=== PATIENT | female | born 1970 | race Caucasian/White ===

== ENCOUNTER → 2021-09-10 | Outpatient (CLI) | payer BC ==
[2021-09-10 14:06] VITALS: BP 121/76; PULSE 91; RESP 16; TEMP 99.4
--- NOTE | 2021-09-10 14:33 | P.GSHP ---
History of Present Illness H&P Date: 09/10/21 Chief Complaint: invasive lobular carcinoma left breast Ness is a 50 year old white female who is seen in consultation for Dr. Mccollum regarding a left breast invasive obturator carcinoma. The patient states she felt a lump in February. She had a bilateral mammogram in March and was told to have a repeat left breast mammogram in 6 months. This was repeated on 08-13-21 and a hyperdensity area of architectural distortion with spiculated margins was noted in the left axilla. An ultrasound was recommended an ultrasound was performed showing an irregular mass in the left axilla and ultrasound-guided core biopsy was performed on . Pathology revealed invasive lobular carcinoma ER/VA positive HER-2/lorenzo negative. She does not note any other lumps masses or nodules of concern in either breast. The area has not changed since she first found it. It was not tender prior to her biopsy. She tolerated the biopsy without difficulty. She has never had any breast surgery. She is not complaining of any trauma or infection in the breast. She does not complain of any nipple discharge or skin changes. Caffeine: daily 3 cups coffee/ 3-4 cans of coca-cola nicotine: 1PPD/since chocolate: none BCP: stopped at 30; used them for 12 years hormones: none Family History: maternal grandmother: lung cancer paternal grandfather: colon cancer paternal grandmother: cancer ? type Hormonal History: menarche: 14 A1, age at first : 32; breast fed: no menopause: still having her periods; periods regular hormones: none BCP: stopped at 30 used for 12 years Surgical History: wisdom teeth Medical History: anxiety and depression Social history: Nicotine: One pack per day since Alcohol: occasional; an actively drinking alcoholic, patient rarely drinks but did have something to drink after she found the diagnosis Drugs:none - Constitutional Comment: perimenopausal Constitutional: Reports sweats - EENT Eyes: denies blurred vision, denies pain Ears: deny: decreased hearing, tinnitus Ears, nose, mouth and throat: Denies headache, Denies sore throat - Breasts Breasts: bilateral: as per HPI - Cardiovascular Cardiovascular: Denies chest pain, Denies shortness of breath - Respiratory Respiratory: Denies cough, Denies 7 - Gastrointestinal Gastrointestinal: Denies abdominal pain, Denies diarrhea, Denies nausea, Denies vomiting - Genitourinary (Female) Genitourinary: Denies dysuria, Denies hematuria - Menstruation Menstruation: Reports as per HPI, Reports period normal - Musculoskeletal Musculoskeletal: Denies myalgias - Integumentary Integumentary: Reports pruritus, Denies rash - Neurological Neurological: Denies numbness, Denies weakness - Psychiatric Psychiatric: Reports anxiety, Reports depression - Endocrine Endocrine: Reports fatigue - Hematologic/Lymphatic Comment: none - Allergic/Immunologic Allergic/Immunologic: Reports as per HPI Past Medical History History of Any Multi-Drug Resistant Organisms: None Reported Smoking Status: Current every day smoker Medications and Allergies Home Medications Medication Instructions Recorded Confirmed Type Ascorbic Acid/Multivit-Min 1,000 mg PO DAILY 09/10/21 09/10/21 History [Emergen-C 1,000 mg Packet] Escitalopram [Lexapro] 10 mg PO DAILY 09/10/21 09/10/21 History Allergies Allergy/AdvReac Type Severity Reaction Status Date / Time Sulfa (Sulfonamide Allergy Rash/Hives Unverified 09/10/21 14:03 Antibiotics) Surgical - Exam Vital Signs Temp Pulse Resp BP Pulse Ox 99.4 F 91 16 121/76 100 09/10/21 14:04 09/10/21 14:04 09/10/21 14:04 09/10/21 14:04 09/10/21 14:04 BMI 22.1 - General moderate distress - Eyes normal ocular movement - ENT no hearing loss - Neck trachea midline - Respiratory normal respiratory effort, clear to auscultation - Cardiovascular Rhythm: regular Heart Sounds: normal: S1, S2 - Abdomen Abdomen: soft, non tender, no guarding, no rigid, no rebound - Integumentary normal turgor - Neurologic no disoriented, no combative - Musculoskeletal normal gait, normal posture - Psychiatric oriented to time, oriented to person, oriented to place, speech is normal, memory intact Breast Exam: BRA: 34B inspection: Bilateral grade 1/2 ptosis Palpation: Right breast: Multi-positional exam fibrocystic changes no discrete dominant masses or nodules of concern Right axilla: No adenopathy of concern Left breast increased fullness upper-outer quadrant approximately 1-1.5 cm in size consistent with biopsy-proven invasive lobular carcinoma no other dominant masses or nodules of concern Left axilla: No adenopathy of concern Results Left breast mammogram and ultrasound reviewed with Dr. Sherman Assessment and Plan Assessment: Impression: 1. Left breast invasive lobular carcinoma T1 N0 M0 G1 ER/VA positive HER-2/lorenzo negative/stage IA Plan: 1. Bilateral breast MRI 2. Presentation of case at tumor board 3. Patient to follow up after MRI and tumor board 4. Consider genetic testing Cc: Dr. Mccollum
== END ==
LOC: WWCWWP 13:44
PROVIDERS: ATTEND Surgery
DX: C50.912 Malignant neoplasm of unspecified site of left female breast (principal); F17.210 Nicotine dependence, cigarettes, uncomplicated; F41.9 Anxiety disorder, unspecified; F32.A Depression, unspecified; Z88.2 Allergy status to sulfonamides

== ENCOUNTER → 2021-09-22 | Outpatient (CLI) | payer BC ==
--- NOTE | 2021-09-28 11:37 | BMR ---
MRI BREAST BILATERAL WO/W CONTRAST 09/24/2021. CLINICAL HISTORY: Left breast cancer. Family history includes: No family history of breast cancer. Me narche at age 14. The patient has had 1 child at age 32. She did not report testing for the breast ca ncer gene. TECHNIQUE: PULSE SEQUENCES: Multiplanar, multisequence MR images of the breast were obtained on a 3.0 [facility], [place] [employer] X MRI imaging scanner. Precontrast axial T1, T2, and diffusion/ADC. Multi phase dynamic post-contrast, fat saturated axial sequences through both breasts at 5 separate time po ints. Delayed volumetric axial images through the breast were also obtained with coronal and sagittal reformats. Dynamic images were spatially registered using the [employer] [place] software package, and dynamic c urves and parametric images were evaluated. Post-processed subtraction and MIP reconstructions were a lso generated and evaluated. As part of the dynamic portion of this examination, 6 mL of Gadavist was administered intravenously a t a rate of 2 mL/sec, without complication. Field of view for the dynamic portion of this study was 34 cm. COMPARISON: Mammograms and ultrasounds dated 09/01/2021. Breast ultrasound dated 08/13/2021. Mammograms dated 021. FINDINGS: The technical quality of this study is considered adequate to make a final assessment and recommendat ion. There is heterogeneous fibroglandular tissue bilaterally and marked background enhancement. Coronal T2 sequences demonstrates normal bilateral axillary nodes. Axial T2 sequence demonstrates multiple bilateral scattered simple cysts, the largest in left upper o uter breast middle depth measuring 6 mm. No fluid collections. Non fat saturated T1 sequence demonstrates no fat containing lesions. Signal void in the left upper o uter breast corresponds to mammographic marker clip. High resolution post contrast sequence demonstrates no internal mammary lymphadenopathy. Regarding the right breast: Marked background parenchymal enhancement limits evaluation for subtle fi ndings. There are no masses, architectural distortion or suspicious areas of enhancement. Regarding the left breast: Marked background parenchymal enhancement limits evaluation for subtle fin dings. At the 2 o'clock position, 7 cm from the nipple, there is an irregular mass with irregular mar gins measuring 2.1 x 1.5 x 2.0 cm. Internal enhancement is heterogeneous. Kinetic assessment demonstr ates fast initial phase enhancement with washout on the delayed portions of the curve. It is best see n on dynamic images 143 through 150. There is surrounding non-mass enhancement with regional distribution which is contiguous with the mas s extending into left lower outer quadrant to the 4 o'clock position measuring 5 cm in extent. Kineti c assessment is limited by patient motion. A community representative area of this non-mass enhancement is seen on dynamic image 105. IMPRESSION: Marked background parenchymal enhancement limits evaluation for subtle findings. Known left breast malignancy is seen as an irregular mass at the 2 o'clock position measuring 2.1 cm in extent as described in the body of the report. Surrounding regional non-mass enhancement measuring 5 cm in extent is contiguous with the known malignancy and is suspicious. No lymphadenopathy. No evidence of malignancy in the right breast. Multiple bilateral scattered simple cysts, benign. Recommendations: Appropriate management known left breast malignancy at the 2 o'clock position. If br east conservation is planned, consider MR-guided biopsy of surrounding regional non-mass enhancement extending to the 4 o'clock position to confirm extent of disease. BI-RADS category 2, benign right breast. BI-RADS category 4, suspicious left breast. CONCURRENT SUPERVISION: I have reviewed the images and agree with the fellow's interpretation. Preliminary created by: Misty Almaraz Signed by: Rosie Delgadillo 09/24/2021 11:45:07 Rosie Delgadillo piano stringer Senior Accountant Cpa, Breast Imaging Section Special Events Planner Student Education in Radiology
== END | disposition home or self-care (01) ==
LOC: RADMRIMAIN 18:54
PROVIDERS: ATTEND Surgery
DX: C50.412 Malignant neoplasm of upper-outer quadrant of left female breast (principal)
CPT/HCPCS: 77049; C8937; A9585

== ENCOUNTER → 2021-12-17 | Outpatient (CLI) | payer BC ==
[2021-12-17 15:22] VITALS: BP 155/84; PULSE 87; RESP 18; TEMP 98.5
--- NOTE | 2021-12-17 15:27 | P.PN ---
Subjective Progress Note Date: 12/17/21 Principal diagnosis: left breast invasive lobular carcinoma invasive lobular carcinoma left breast Ness is a 50 year old white female who is seen in consultation for Dr. Mccollum regarding a left breast invasive lobular carcinoma. The patient states she felt a lump in February. She had a bilateral mammogram in March and was told to have a repeat left breast mammogram in 6 months. This was repeated on 08-13-21 and a hyperdensity area of architectural distortion with spiculated margins was noted in the left axilla. An ultrasound was recommended an ultrasound was performed showing an irregular mass in the left axilla and ultrasound-guided core biopsy was performed on . Pathology revealed invasive lobular carcinoma ER/TX positive HER-2/lorenzo negative. She does not note any other lumps masses or nodules of concern in either breast. The area has not changed since she first found it. It was not tender prior to her biopsy. She tolerated the biopsy without difficulty. She has never had any breast surgery. She is not complaining of any trauma or infection in the breast. She does not complain of any nipple discharge or skin changes. 12-17-21 The patient underwent a bilateral breast MRI on . This revealed marked background parenchymal enhancement. Known left breast malignancy was seen as an irregular mass at the 2 o'clock position measuring 2.1 cm. Surrounding the region was a non-mass enhancing area which measured 5 cm and was contiguous with the known malignancy and felt to be suspicious. No lymphadenopathy of concern was noted No evidence of malignancy in the right breast Multiple bilateral scattered simple cyst benign The patient was seen by Dr. Ch for immediate breast reconstruction consideration The patient underwent genetic testing and had a very Service significance The patient's case was presented at tumor board and it was felt that the patient could proceed with surgery prior to any neoadjuvant intervention Caffeine: daily 3 cups coffee/ 3-4 cans of coca-cola nicotine: 1PPD/since 14 chocolate: none BCP: stopped at 30; used them for 12 years hormones: none Family History: maternal grandmother: lung cancer paternal grandfather: colon cancer paternal grandmother: cancer ? type Hormonal History: menarche: 14 A1, age at first : 32; breast fed: no menopause: still having her periods; periods regular hormones: none BCP: stopped at 30 used for 12 years Surgical History: wisdom teeth Medical History: anxiety and depression Social history: Nicotine: One pack per day since 14 Alcohol: occasional; an actively drinking alcoholic, patient rarely dr inks but did have something to drink after she found the diagnosis Drugs:none - Constitutional Comment: perimenopausal Constitutional: Reports sweats - EENT Eyes: denies blurred vision, denies pain Ears: deny: decreased hearing, tinnitus Ears, nose, mouth and throat: Denies headache, Denies sore throat - Breasts Breasts: bilateral: as per HPI - Cardiovascular Cardiovascular: Denies chest pain, Denies shortness of breath - Respiratory Respiratory: Denies cough - Gastrointestinal Gastrointestinal: Denies abdominal pain, Denies diarrhea, Denies nausea, Denies vomiting - Genitourinary (Female) Genitourinary: Denies dysuria, Denies hematuria - Menstruation Menstruation: Reports as per HPI, Reports period normal - Musculoskeletal Musculoskeletal: Denies myalgias - Integumentary Integumentary: Reports pruritus, Denies rash - Neurological Neurological: Denies numbness, Denies weakness - Psychiatric Psychiatric: Reports anxiety, Reports depression - Endocrine Endocrine: Reports fatigue - Hematologic/Lymphatic Comment: none - Allergic/Immunologic Allergic/Immunologic: Reports as per HPI Past Medical History History of Any Multi-Drug Resistant Organisms: None Reported Smoking Status: Current every day smoker Objective - Constitutional General appearance: Present: cooperative - EENT Eyes: Present: EOMI ENT: Present: hearing grossly normal - Neck Neck: Present: normal ROM - Respiratory Respiratory: bilateral: CTA - Cardiovascular Rhythm: regular Heart sounds: normal: S1, S2 - Gastrointestinal General gastrointestinal: Present: soft - Integumentary Integumentary: Present: normal turgor - Musculoskeletal Musculoskeletal: Present: gait normal - Psychiatric Psychiatric: Present: A&O x's 3, appropriate affect, intact judgment & insight - Additional findings Additional findings: Breast examination: Bra: 34B Inspection: bilateral grade 1/2 ptosis palpation: right breast: Multi-positional exam fibrocystic changes no dominant masses or nodules of concern Right axilla: No adenopathy of concern Left breast: Multi-positional exam fullness upper-outer quadrant area no dominant masses or nodules of concern Left axilla: No adenopathy of concern Assessment and Plan Assessment: Impression: Invasive lobular carcinoma left breast Genetic evaluation. Of unknown significance MRI bilateral of the breast questionable size of involvement on the left side possibly up to 5 cm Plan: Bilateral nipple sparing mastectomies with immediate subpectoral implant reconstruction left axillary sentinel node injection, left axillary sentinel node biopsy, poss ible left axillary node dissection CC: Dr. Mccollum
== END ==
LOC: WWCWWP 15:01
PROVIDERS: ATTEND Surgery
DX: C50.412 Malignant neoplasm of upper-outer quadrant of left female breast (principal); F17.210 Nicotine dependence, cigarettes, uncomplicated; F32.A Depression, unspecified; F41.9 Anxiety disorder, unspecified; Z88.2 Allergy status to sulfonamides

== ENCOUNTER 2021-12-28 07:45 | Day surgery (SDC) | payer BC ==
[2021-12-27 09:23] VITALS: BMI 21.8
[~2021-12-28 07:45] MED LIST: DEXAMETHASONE SOD PHOSPHATE 4 MG/ML 1 ML VIAL IV ONE; HEPARIN SODIUM,PORCINE/PF 5,000 UNIT/0.5 ML SYRINGE SQ PRN; LIDOCAINE 1% (10MG/ML) FOR IV START INTRADERMA PRN; MIDAZOLAM 2 MG/2 ML VIAL IV PRN; ONDANSETRON 4 MG/2 ML VIAL IVP ONE; Pre Op ABX Message 1 EACH MISC MISCELLANE ONE
[2021-12-28] MEDS: LACTATED RINGERS 1,000 ML IV SCH (08:13)
[2021-12-28 08:57] LABS: Basophils % (A) 1 %; Eosinophils # (A) 0.2 k/uL (0-0.7); Eosinophils % (A) 4 %; HCT 36.9 % (34.0-46.0); HGB 11.9 gm/dL (11.4-16.0); Lymphocytes # (A) 1.7 k/uL (1.0-4.8); Lymphocytes % (A) 34 %; MCH 32.7 pg (25.0-35.0); MCHC 32.3 g/dL (31.0-37.0); MCV 101.3 fL (80.0-100.0); Mean Platelet Volume 7.3; Monocytes # (A) 0.3 k/uL (0-1.0); Monocytes % (A) 5 %; Neutrophils # (A) 2.7 k/uL (1.3-7.7); Neutrophils % (A) 53 %; Platelet Count 277 k/uL (150-450); RBC 3.64 m/uL (3.80-5.40); RDW 12.8 % (11.5-15.5); WBC 5.1 k/uL (3.8-10.6)
--- NOTE | 2021-12-28 09:23 | NM ---
EXAMINATION TYPE: NM sentinel node injection DATE OF EXAM: 12/28/2021 COMPARISON: None HISTORY: 51-year-old female with left breast cancer, scheduled for surgery today TECHNIQUE AND FINDINGS: The procedure of sentinel lymph node injection was explained to the patient. The benefits, alternatives, and risks were discussed. An informed consent was then obtained. Overlying skin is cleaned with sterile alcohol. Following this, 502 uCi [id number] Tilmanocept was inject ed in the upper outer aspect of the left nipple intradermally. The patient tolerated the procedure well without any immediate complication. The patient was kept in the radiology department for short stay after the procedure and then taken to surgery for surgical p rocedure what is presumed intraoperative gamma probe will be used for sentinel lymph node detection. IMPRESSION: Successful left breast radiotracer injection for sentinel node localization as above.
[2021-12-28] MEDS ORDERED: ceFAZolin 1,000 MG VIAL ONE (09:45)
[2021-12-28] MEDS ORDERED: fentaNYL (PF) 50 MCG/ML 2 ML AMP ONE (09:45)
[2021-12-28] MEDS ORDERED: SUCCINYLCHOLINE CHLORIDE 100 MG/5 ML SYR IV ONE (09:45)
[2021-12-28] MEDS ORDERED: ePHEDrine 50 MG/ML 1 ML VIAL ONE (09:45)
[2021-12-28] MEDS ORDERED: LIDOCAINE 2% INJ 20 MG/ML (2 ML VIAL) ONE (09:45)
[2021-12-28] MEDS ORDERED: PROPOFOL 10 MG/ML 20 ML VIAL IV ONE (09:45)
[2021-12-28] MEDS ORDERED: MIDAZOLAM 2 MG/2 ML VIAL ONE (09:45)
--- NOTE | 2021-12-28 09:47 | P.NAPBC ---
[facility] Queries - [facility] Queries Was patient's case review presented at [facility] tumor board? If no, comment.: Yes Was patient's pathology reviewed at [facility]? If no, comment.: Yes Was breast conservation surgery offered? If no, comment.: Yes Was sentinel node biopsy offered? If no, comment.: Yes Was diagnosis confirmed by percutaneous core biopsy? If no, comment.: Yes Is patient mastectomy patient?: Yes Was a preop referral to reconstructive surgeon offered?: Yes [facility] Comments: invasive lobular left breast cancer Clinical Stage: [id number]+Pr+Her2-G1 left breast invasive lobular cancer
[2021-12-28] MEDS ORDERED: SODIUM CHLORIDE 0.9% 50 ML with ceFAZolin 1,000 MG IV ONE ×2 (09:48)
[2021-12-28] MEDS ORDERED: NALOXONE 0.4 MG/ML 1 ML VIAL IV PRN (12:03)
[2021-12-28] MEDS ORDERED: ONDANSETRON 4 MG/2 ML VIAL IVP PRN (12:03)
[2021-12-28] MEDS ORDERED: HYDROmorphone 1 MG/ML 1 ML SYRINGE IVP PRN (12:03)
--- NOTE | 2021-12-28 12:03 | P.OP ---
Date of Procedure: 12/28/21 Preoperative Diagnosis: Left breast invasive ductal carcinoma, T2 N0 M0 ER positive ME positive HER- 2/lorenzo negative G1 Postoperative Diagnosis: Same Procedure(s) Performed: Bilateral nipple sparing mastectomy, left axillary sentinel node biopsy Implants: Bilateral subpectoral implant placement Anesthesia: ANA Surgeon: Shelley Hensley Carbonation Tester #2: Sam Jones Estimated Blood Loss (ml): 30 IV fluids (ml): 400 Pathology: other (Bilateral breast, tissue under the left nipple complex, left sentinel node biopsy) Condition: stable Disposition: same day (Bilateral breast, left sentinel node biopsy) Indications for Procedure: Left breast invasive lobular carcinoma Operative Findings: Dense breast tissue Description of Procedure: Following the patient didn't seem to radiology and injection of radioactive substance around the left periareolar region the patient was seen and marked in the preoperative area. She was seen by plastic surgery and marked as well as the markings where the incisions were made for nipple sparing mastectomies. The patient was brought to the operative suite and following induction of anesthesia the left axilla was interrogated using the neoprobe. Radioactivity was identified. The breast were then prepped and draped as well as the left axilla in a sterile fashion. The right breast was approached initially. An incision was made circumferential dissection was performed. The breast was from the skin envelope laterally inferiorly and superiorly down to the chest wall. Under the nipple areolar complex careful dissection was performed under the nipple complex. The breast was taken down from the chest wall using the electrocautery device. Several vessels were identified these were cauterized. After this had been performed the cavity was well irrigated. After assured that hemostasis was attained the wound was packed. The left side was then approached. An incision was made and carried down through the skin and subcutaneous tissue to the plane between the breast and the subcutaneous tissue. Careful dissection was performed using the electrocautery device as well as blunt diss ection superiorly medially inferiorly and laterally down to the chest wall. The breast tissue was removed from the skin envelope. Dissection was then performed from the chest wall removing the breast tissue. Under the nipple areolar complex of biopsy was taken to assure that all breast tissue had been removed. The area of the axilla was approached. Using the neoprobe interrogation was performed and the area of radioactivity was identified. At this site a lymph node was identified. The 10 second count after removal was 14,686. The background count in the axilla was 70. After assured that hemostasis was attained the area was well irrigated. The tissue directly under the nipple was biopsied and sent for frozen section. The patient is having subpectoral implant reconstruction by Dr. Ch.
[2021-12-28] MEDS ORDERED: LACTATED RINGERS 1,000 ML IV ONE (13:31)
[2021-12-28] MEDS: HYDROmorphone 0.5 MG/0.5 ML SYRINGE IVP PRN ×2 (14:14→14:29)
--- NOTE | 2021-12-28 15:25 | OP ---
OPERATIVE REPORT DATE OF SURGERY: December 28, 2021. SURGEON: Sam Jones. PREOPERATIVE DIAGNOSES: 1. Acquired loss right and left breast. 2. Invasive lobular breast cancer, left breast. POSTOPERATIVE DIAGNOSES: 1. Acquired absence of right and left breast. 2. Invasive lobular breast cancer, left breast. OPERATIVE PROCEDURES: 1. Immediate reconstruction right breast following mastectomy with insertion of tissue general laborer and subsequent outpatient expansion. 2. Immediate reconstruction left breast following mastectomy with insertion of tissue general laborer, subsequent outpatient expansion. 3. Implantation of reconstructive graft for right and left breast reconstruction. OPERATIVE INDICATIONS: The patient is a 51-year-old female with invasive lobular cancer of left breast. She has elected to undergo nipple sparing mastectomies, bilateral. She is also to undergo a left sentinel lymph node biopsy. The patient was referred to my care for a breast reconstruction and elected to proceed with tissue general laborer style reconstruction. She is aware of potential risks and complications related to the surgery including but not limited to hematoma, seroma, wound healing problems, potential nipple loss, nipple malposition, among others. She has requested I perform the surgery. The patient is also aware of the staged nature of breast reconstructive surgery. OPERATIVE PROCEDURE SUMMARY: The patient is seen in the preoperative area, markings made, procedure reviewed. All questions answered. She is transported to the operating room where she was placed in supine position. Following induction of general tracheal anesthesia, the patient is prepped and draped in usual fashion. Dr. Hensley then proceeded with the right simple mastectomy followed by left mastectomy with left sentinel lymph node biopsy. Once those procedures were complete, I proceeded with the breast reconstruction. Sponge and needle counts of prior procedures were complete. Both mastectomy wounds were open with no active bleeding. Reconstruction was initiated on the right side identifying the pectoralis major muscle where it joined the chest wall laterally. Loose areolar connective tissue divided with cautery here allowing entry into the potential plane between the pectoralis major and minor muscles which were bluntly . The medial attachment fibers of the pectoralis major muscle to ribs and all inferior attachments released with cautery. Additional muscle tissue was recruited for coverage of the general laborer and reconstruction. Inferior medially the rectus abdominis muscle and fascia inferolaterally, external abdominal oblique muscle and fascia and laterally serratus anterior muscle fascia were all elevated cautery through this technique maintaining hemostasis with cautery while dissecting. Irrigation was performed. Hemostasis was optimal. The site was packed open with moistened laparotomy sponges. Attention turned to left reconstruction. Again, the pectoralis major muscle was identified where it joined the chest wall lateral aspect. Loose areolar connective tissue divided with cautery here. This allowed entry into the potential plane between the pectoralis major and minor muscles bluntly developed. Medial attachment fibers of the pectoralis major muscle to ribs and all inferior attachment of the pectorals major muscle to ribs were released with cautery. Additional muscle tissue was required for a reconstructive coverage inferior medially, rectus abdominis muscle and fascia, inferolaterally external abdominal oblique muscle and fascia and laterally serratus anterior muscle and fascia were all elevated through this technique with cautery maintaining hemostasis while dissecting. Once a sufficient sized submuscular reconstructive pocket was created in a symmetrical fashion to the right, surgery was stopped. Both sides were irrigated. Hemostasis optimized and excellent on both sides. The cavities were sized and tissue expanders were opened on the field. Gloves were changed prior to handling the tissue expanders. Both expanders measured 400 mL in volume from the [employer] tissue general laborer line, reference #[id number]. The right- sided serial #[id number] and the left-sided serial #[id number]. Each device was opened, irrigated with saline. All air extracted and filled 50 mL 0.9 normal saline. The devices were temporary placed in each reconstructive cavity. However muscle tissue could not be closed over either device in a suitable fashion. The devices were temporarily removed. SurgiMend reconstructive graft opened on the field. Two sheets measuring 10 x 15 cm meshed and thin revitalized room temperature saline, one sheet was placed on the left and one on the right. They were placed, oriented inferior modified slim technique, secured to the inferior muscle cuff and lateral muscle cuff using interrupted and short running 3-0 Vicryl on each side. The expanders were replaced on each side and then the SurgiMend advanced over the general laborer deep to the remaining muscle flap tissue and inset to the remaining muscle flap tissue using interrupted and short running 3-0 Vicryl on each side. Complete coverage now obtained. Each general laborer was filled to a volume of 200 mL which placed optimal tension on the tissues. Irrigation was performed. Hemostasis was excellent. Two nineteen round Romulo channel drains opened on the field. One drain placed in each reconstructive cavity and brought out thru separate stab incisions right and left anterior lateral chest wall and sutured in place with 2-0 Prolene. The incisions were now closed approximating deep dermis using inverted interrupted 4-0 Monocryl and completing superficial dermal epidermal closure with subcuticular 3-0 Prolene. Surgical quick cleansed with saline. Postoperative bandages placed using sterile one-inch paper tape over suture repairs followed by Kerlix squares secured with 3 Medipore tape. The drains connected to close bulb suction and patent. The patient was then awakened from her anesthetic, extubated in the operating room and transferred to recovery room in good condition stable vital signs. Estimated blood loss was 50 mL. There were no complications. MMODL / IJN: [id number] /
[2021-12-28] MEDS: HEPARIN SODIUM,PORCINE/PF 5,000 UNIT/0.5 ML SYRINGE SQ SCH (16:33)
[2021-12-28] MEDS: SODIUM CHLORIDE 0.9% 1,000 ML IV SCH (16:42)
[2021-12-28 17:41] VITALS: RESP 16
[2021-12-28] MEDS: ACETAMINOPHEN IV (For NPO) 1,000 MG in EMPTY BAG 1 BAG IVPB SCH (18:26)
[2021-12-29] MEDS: ACETAMINOPHEN IV (For NPO) 1,000 MG in EMPTY BAG 1 BAG IVPB SCH ×3 (00:02→13:05)
[2021-12-29] MEDS: HEPARIN SODIUM,PORCINE/PF 5,000 UNIT/0.5 ML SYRINGE SQ SCH ×2 (00:02→08:16)
[2021-12-29] MEDS: SODIUM CHLORIDE 0.9% 1,000 ML IV SCH ×2 (01:14→08:37)
[2021-12-29] MEDS: HYDROcodone/APAP 5-325MG 1 EACH TAB PO PRN ×2 (05:55→09:48)
[2021-12-29 07:00] LABS: Basophils % (A) 0 %; Eosinophils % (A) 0 %; HCT 32.6 % (34.0-46.0); HGB 10.4 gm/dL (11.4-16.0); Lymphocytes # (A) 1.6 k/uL (1.0-4.8); Lymphocytes % (A) 24 %; MCH 33.1 pg (25.0-35.0); MCHC 31.9 g/dL (31.0-37.0); MCV 103.8 fL (80.0-100.0); Macrocytosis Slight; Mean Platelet Volume 7.7; Monocytes # (A) 0.5 k/uL (0-1.0); Monocytes % (A) 7 %; Neutrophils # (A) 4.6 k/uL (1.3-7.7); Neutrophils % (A) 67 %; Platelet Count 224 k/uL (150-450); RBC 3.14 m/uL (3.80-5.40); RDW 12.2 % (11.5-15.5); WBC 6.9 k/uL (3.8-10.6)
[2021-12-29] MEDS: LACTATED RINGERS 1,000 ML IV SCH (07:24)
--- NOTE | 2021-12-29 11:51 | P.PN ---
Subjective Progress Note Date: 12/29/21 Principal diagnosis: bilateral mastectomy with bilateral subpectoral implant reconstruction left sentinel node biopsy postop day #1 Ness Thompson is a 51-year-old white female status post bilateral nipple sparing mastectomy with subpectoral implant reconstruction and left sentinel node biopsy postop day #1. She has done well postoperatively and is tolerating diet without difficulty. Her hemoglobin today is 10.4 white count 6.9. GHISLAINE drainage is serous in nature bilaterally with the left being 12 mL today in the right 10 mL. She is ambulating without difficulty. Objective - Vital Signs Vital signs: Vital Signs Temp 98.8 F 12/29/21 08:00 Pulse 64 12/29/21 08:00 Resp 16 12/29/21 08:00 BP 112/71 12/29/21 08:00 Pulse Ox 95 12/29/21 08:00 FiO2 Intake & Output 12/28/21 12/29/21 12/29/21 18:59 06:59 18:59 Intake Total 1350 Output Total 1010 963 22 Balance 340 -963 -22 Weight 59 kg Intake: IV 1350 Output: Drainage 163 22 Left Chest 100 12 Right Chest 63 10 Urine 900 800 Estimated Blood Loss 110 Other: # Voids 1 - Constitutional General appearance: Present: cooperative - EENT Eyes: Present: EOMI ENT: Present: hearing grossly normal - Neck Neck: Present: normal ROM - Respiratory Details: Slight decreased breath sounds bilaterally at the bases - Cardiovascular Rhythm: regular Heart sounds: normal: S1, S2 - Integumentary Integumentary Comment(s): Incisions clean and dry bilaterally Integumentary: Present: normal turgor - Musculoskeletal Musculoskeletal: Present: gait normal - Psychiatric Psychiatric: Present: A&O x's 3, appropriate affect, intact judgment & insight - Labs CBC & Chem 7: 12/29/21 06:15 Labs: Abnormal Lab Results - Last 24 Hours (Table) 12/29/21 Range/Units 06:15 RBC 3.14 L (3.80-5.40) m/uL Hgb 10.4 L (11.4-16.0) gm/dL Hct 32.6 L (34.0-46.0) % MCV 103.8 H (80.0-100.0) fL Assessment and Plan Assessment: Impression: Patient doing well postop day #1 bilateral mastectomy with subpectoral implant reconstruction left sentinel lobe biopsy Slight decreased breath sounds at the bases patient encouraged to breathe deeply Plan: Discharge home to be followed by Dr. Johnson and Dr. Ch next week Teaching patient drain care Encourage patient to breathe deeply Patient a call if any questions or concerns
--- NOTE | 2021-12-29 11:57 | P.DS ---
Providers Date of admission: 12-28-21 Expected date of discharge: 12/29/21 Attending physician: Shelley Hensley Primary care physician: Stated None Hospital Course: The patient is a 51-year-old white female who underwent a bilateral nipple sparing mastectomy and bilateral subpectoral implant reconstruction with left sentinel node biopsy on 520 [id number]. Post operatively she has done well with no complaints. Assessment: Patient is stable and doing well at this time. Procedures: Bilateral nipple sparing mastectomy with bilateral subpectoral implant reconstruction, left sentinel node biopsy. Plan - Discharge Summary Discharge Rx Participant: Yes New Discharge Prescriptions: No Action Escitalopram [Lexapro] 10 mg PO DAILY Vitamin C Powder 1 applicate PO DAILY Discharge Medication List Escitalopram [Lexapro] 10 mg PO DAILY 09/10/21 [History] Vitamin C Powder 1 applicate PO DAILY 12/27/21 [History] Follow up Appointment(s)/Referral(s): Shelley Hensley MD [STAFF PHYSICIAN] - 01/07/22 3:40 pm [facility], [NON-STAFF] - As Needed Sam Jones MD [STAFF PHYSICIAN] - 1 Week Activity/Diet/Wound Care/Special Instructions: Teach patient drain care Do not drive until seen by Dr. Johnson Discharge Disposition: HOME SELF-CARE
--- NOTE | 2021-12-29 12:33 | P.PN ---
Progress Note - Text Progress Note Date: 12/29/21 I have had a conversation with the patient regarding her discharge pain medication. The patient is presently taking Lexapro and there can be an interaction with Lexapro and [place]. This can lead to serotonin syndrome. I therefore suggested that she take extra strength Tylenol instead of the [place]. She has been receiving [place] in the hospital without any symptoms. She would like to continue the Lexapro and at this time she is going to use extra strength Tylenol for her pain medication. She is still given a prescription for [place] if the pain cannot be tolerated with extra strength Tylenol. I discussed with her symptoms of serotonin syndrome if any of these were noted she would stop the [place] and go to the emergency room.
[2021-12-29] MEDS ORDERED: ACETAMINOPHEN TAB 500 MG TAB PO STA (13:06)
[2021-12-29 17:11] VITALS: BP 130/78; PULSE 80; TEMP 98.4
== END 2021-12-29 16:50 | disposition home or self-care (01) ==
LOC: OR 07:45 → 4FBP 13:31 → OR 12-29 16:50
PROVIDERS: ATTEND Surgery
DX: C50.912 Malignant neoplasm of unspecified site of left female breast (principal); C77.3 Secondary and unspecified malignant neoplasm of axilla and upper limb lymph nodes; F17.210 Nicotine dependence, cigarettes, uncomplicated; Z17.0 Estrogen receptor positive status [ER+]; Z88.2 Allergy status to sulfonamides; Z79.899 Other long term (current) drug therapy
CPT/HCPCS: 81025; 88305; 85025 ×2; 88342; 88331; 88307; 88341; 38792; 19303; 19357; 38525; 15273; 15274 ×2; C1889; C1763; A9520; J2250; J1100; J2405; J0690 ×2; J3010; J1170 ×2; J0131 ×2; J0330; J2704; J1644 ×2; J2001

== ENCOUNTER → 2022-01-10 | Outpatient (CLI) | payer BC ==
[2022-01-10 11:23] VITALS: BP 114/77; PULSE 64; RESP 17; TEMP 97.9
--- NOTE | 2022-01-10 11:46 | P.PN ---
Progress Note - Text Progress Note Date: 01/10/22 Ness is a 51-year-old white female status post bilateral nipple sparing mastectomy and left sentinel node biopsy on 520 422. Pathology revealed: Right breast: Lobular neoplasia 8 LH/LCIS, negative for invasive malignancy Left breast: Invasive lobular carcinoma 2.1 cm in size margins all negative Left sentinel node: Positive for microscopic disease The patient is doing well at this time and is following with Dr. Ch where she is having her expanders enlarged. Physical exam: Lungs: Clear Heart: Regular rate and rhythm Incisions: Clean and dry bilateral Impression: Positive microscopic disease left axillary node cases going to be presented at tumor board Plan: Continue follow with plastic surgery Appointment with medical oncology Department with radiation oncology Follow-up here after presentation of case at tumor board Cc: Dr. Mccollum
== END ==
LOC: WWCWWP 11:12
PROVIDERS: ATTEND Surgery
DX: C50.412 Malignant neoplasm of upper-outer quadrant of left female breast (principal); Z90.13 Acquired absence of bilateral breasts and nipples; Z88.2 Allergy status to sulfonamides; Z88.8 Allergy status to other drugs, medicaments and biological substances

== ENCOUNTER → 2022-02-18 | Outpatient (CLI) | payer BC ==
[2022-02-18 12:36] VITALS: RESP 16; TEMP 98.6
--- NOTE | 2022-02-18 12:48 | P.PN ---
Subjective Progress Note Date: 02/18/22 Principal diagnosis: left breast invasive lobular cancer left breast invasive lobular carcinoma invasive lobular carcinoma left breast Ness is a 50 year old white female who is seen in consultation for Dr. Mccollum regarding a left breast invasive lobular carcinoma. The patient states she felt a lump in February. She had a bilateral mammogram in March and was told to have a repeat left breast mammogram in 6 months. This was repeated on 08-13-21 and a hyperdensity area of architectural distortion with spiculated margins was noted in the left axilla. An ultrasound was recommended an ultrasound was performed showing an irregular mass in the left axilla and ultrasound-guided core biopsy was performed on . Pathology revealed invasive lobular carcinoma ER/HI positive HER-2/lorenzo negative. She does not note any other lumps masses or nodules of concern in either breast. The area has not changed since she first found it. It was not tender prior to her biopsy. She tolerated the biopsy without difficulty. She has never had any breast surgery. She is not complaining of any trauma or infection in the breast. She does not complain of any nipple discharge or skin changes. 12-17-21 The patient underwent a bilateral breast MRI on . This revealed marked background parenchymal enhancement. Known left breast malignancy was seen as an irregular mass at the 2 o'clock position measuring 2.1 cm. Surrounding the region was a non-mass enhancing area which measured 5 cm and was contiguous with the known malignancy and felt to be suspicious. No lymphadenopathy of concern was noted No evidence of malignancy in the right breast Multiple bilateral scattered simple cyst benign The patient was seen by Dr. Ch for immediate breast reconstruction consideration The patient underwent genetic testing and had a variant of uncertain significance 02-17-22 The patient on 12-28-21 underwent a bilateral nipple sparing mastectomy with a left sentinel node sampling. The margins were all negative, however the node had micromets. She was seen by radiation oncology and did not receive radiation therapy. She note 01-18-[address] Polanco radiation oncology/ Note 01-12-[address] Avila doubted need for chemotherapy; oncotype score 10 She is in the process of reconstruction. Caffeine: daily 3 cups coffee/ 3-4 cans of coca-cola nicotine: 1PPD/since chocolate: none BCP: stopped at 30; used them for 12 years hormones: none Family History: maternal grandmother: lung cancer paternal grandfather: colon cancer paternal grandmother: cancer ? type Hormonal History: menarche: 14 A1, age at first : 32; breast fed: no menopause: still having her periods; periods regular hormones: none BCP: stopped at 30 used for 12 years Surgical History: wisdom teeth bilateral mastectomy nipple sparing with left SNB bilateral breast implant reconstruction Medical History: anxiety and depression Social history: Nicotine: One pack per day since 14 Alcohol: occasional; an actively drinking alcoholic, patient rarely drinks but did have something to drink after she found the diagnosis Drugs:none - Constitutional Comment: perimenopausal Constitutional: Reports sweats - EENT Eyes: denies blurred vision, denies pain Ears: deny: decreased hearing, tinnitus Ears, nose, mouth and throat: Denies headache, Denies sore throat - Breasts Breasts: bilateral: as per HPI - Cardiovascular Cardiovascular: Denies chest pain, Denies shortness of breath - Respiratory Respiratory: Denies cough - Gastrointestinal Gastrointestinal: Denies abdominal pain, Denies diarrhea, Denies nausea, Denies vomiting - Genitourinary (Female) Genitourinary: Denies dysuria, Denies hematuria - Menstruation Menstruation: Reports as per HPI, Reports period normal - Musculoskeletal Musculoskeletal: Denies myalgias - Integumentary Integumentary: Reports pruritus, Denies rash - Neurological Neurological: Denies numbness, Denies weakness - Psychiatric Psychiatric: Reports anxiety, Reports depression - Endocrine Endocrine: Reports fatigue - Hematologic/Lymphatic Comment: none - Allergic/Immunologic Allergic/Immunologic: Reports as per HPI Objective - Vital Signs Vital signs: Vital Signs Temp 98.6 F 02/18/22 12:34 Pulse Resp 16 02/18/22 12:34 BP Pulse Ox 99 02/18/22 12:34 FiO2 Intake & Output 02/17/22 02/18/22 02/18/22 18:59 06:59 18:59 Weight 56.699 kg - Constitutional General appearance: Present: cooperative - EENT Eyes: Present: EOMI ENT: Present: hearing grossly normal - Neck Neck: Present: normal ROM - Respiratory Respiratory: bilateral: CTA - Cardiovascular Rhythm: regular Heart sounds: normal: S1, S2 - Integumentary Integumentary: Present: normal turgor - Musculoskeletal Musculoskeletal: Present: gait normal - Psychiatric Psychiatric: Present: A&O x's 3, appropriate affect, intact judgment & insight - Additional findings Additional findings: Breast examination: Patient is in the process of bilateral implant fleet operations manager reconstruction Palpation: Right breast: Examination does not reveal any evidence of disease in the skin Right axilla: No adenopathy of concern Left breast: Examination does not reveal any evidence of recurrence or disease in the skin Left axilla: No adenopathy of concern Assessment and Plan Assessment: Impression: Left breast invasive lobular carcinoma with a micrometastatic deposit and lymph node No evidence of recurrent cancer at this time Patient is in the process of subpectoral implant fleet operations manager reconstruction Plan: Continue reconstruction as per Dr. Ch At this time patient is not having radiation therapy Patient will follow with medical oncology for hormone therapy as this was ER/HI positive Follow-up here in 4 months
== END ==
LOC: WWCWWP 12:12
PROVIDERS: ATTEND Surgery
DX: Z08 Encounter for follow-up examination after completed treatment for malignant neoplasm (principal); Z85.3 Personal history of malignant neoplasm of breast; F41.9 Anxiety disorder, unspecified; F32.A Depression, unspecified; Z90.13 Acquired absence of bilateral breasts and nipples; F17.210 Nicotine dependence, cigarettes, uncomplicated; Z88.8 Allergy status to other drugs, medicaments and biological substances; Z88.2 Allergy status to sulfonamides

== ENCOUNTER 2022-03-22 06:58 | Day surgery (SDC) | payer BC ==
[2022-03-17 16:13] VITALS: BMI 22.1
[~2022-03-22 06:58] MED LIST changes: -HEPARIN SODIUM,PORCINE/PF 5,000 UNIT/0.5 ML SYRINGE SQ PRN; +LACTATED RINGERS 1,000 ML IV SCH; -LIDOCAINE 1% (10MG/ML) FOR IV START INTRADERMA PRN; -MIDAZOLAM 2 MG/2 ML VIAL IV PRN; -Pre Op ABX Message 1 EACH MISC MISCELLANE ONE
[2022-03-22 07:51] LABS: Basophils # (A) 0.1 k/uL (0-0.2); Basophils % (A) 1 %; Eosinophils # (A) 0.3 k/uL (0-0.7); Eosinophils % (A) 3 %; HCT 43.2 % (34.0-46.0); HGB 13.4 gm/dL (11.4-16.0); Lymphocytes % (A) 23 %; MCH 32.2 pg (25.0-35.0); MCHC 30.9 g/dL (31.0-37.0); Macrocytosis Slight; Mean Platelet Volume 7.6; Monocytes # (A) 0.5 k/uL (0-1.0); Monocytes % (A) 6 %; Neutrophils # (A) 5.8 k/uL (1.3-7.7); Neutrophils % (A) 66 %; Platelet Count 274 k/uL (150-450); RBC 4.15 m/uL (3.80-5.40); RDW 12.2 % (11.5-15.5); WBC 8.8 k/uL (3.8-10.6)
[2022-03-22] MEDS ORDERED: MIDAZOLAM 2 MG/2 ML VIAL IVP ONE (08:02)
[2022-03-22] MEDS ORDERED: GLYCOPYRROLATE 0.2 MG/ML 2 ML VIAL ONE (08:43)
[2022-03-22] MEDS ORDERED: LIDOCAINE 2% INJ 20 MG/ML (2 ML VIAL) ONE (08:43)
[2022-03-22] MEDS ORDERED: ROCURONIUM 10 MG/ML (5 ML VIAL) IV ONE (08:43)
[2022-03-22] MEDS ORDERED: ePHEDrine 50 MG/ML 1 ML VIAL ONE (08:43)
[2022-03-22] MEDS ORDERED: SUCCINYLCHOLINE CHLORIDE 200 MG/10 ML VIAL IV ONE (08:43)
[2022-03-22] MEDS ORDERED: NEOSTIGMINE 1 MG/ML 10 ML VIAL ONE (08:43)
[2022-03-22] MEDS ORDERED: MIDAZOLAM 2 MG/2 ML VIAL ONE (08:43)
[2022-03-22] MEDS ORDERED: fentaNYL (PF) 50 MCG/ML 2 ML AMP ONE (08:43)
[2022-03-22] MEDS ORDERED: PROPOFOL 10 MG/ML 20 ML VIAL IV ONE (08:43)
[2022-03-22] MEDS ORDERED: LACTATED RINGERS 1,000 ML IV ONE (09:31)
[2022-03-22 11:21] VITALS: TEMP 97.8
[2022-03-22] MEDS: HYDROmorphone 0.5 MG/0.5 ML SYRINGE IVP PRN ×2 (11:27→11:38)
[2022-03-22 12:26] VITALS: PULSE 48; RESP 16
[2022-03-22] MEDS ORDERED: Acetaminophen-Codeine 300-30mg TAB ONE (12:29)
[2022-03-22 12:59] VITALS: BP 100/65
--- NOTE | 2022-03-22 14:26 | OP ---
OPERATIVE REPORT PREOPERATIVE DIAGNOSES: 1. Acquired loss, right and left breasts. 2. Personal history of breast cancer. 3. Personal history of bilateral mastectomy. 4. Acquired deformity of right and left reconstructed breasts. 5. Acquired loss, right and left breast inframammary folds. POSTOPERATIVE DIAGNOSES: 1. Acquired loss, right and left breasts. 2. Personal history of breast cancer. 3. Personal history of bilateral mastectomy. 4. Acquired deformity of right and left reconstructed breast. 5. Acquired loss, right and left breast inframammary folds. OPERATIVE PROCEDURES: 1. Replace right breast tissue prepress proofer with silicone breast implant for right breast reconstruction. 2. Revision right reconstructed breast. 3. Replace left breast tissue prepress proofer with silicone breast implant for left breast reconstruction. 4. Revision left reconstructed breast. 5. Reconstruction of right and left inframammary folds via local advancement flaps, 57 square cm. OPERATIVE INDICATIONS: The patient is a 51-year-old female, who has undergone bilateral nipple-sparing mastectomies for treatment of breast cancer with immediate reconstruction via tissue prepress proofer technique. She has completed subsequent outpatient expansion, is returning to surgery today for a second stage of breast reconstruction including replacement of tissue prepress proofer with silicone implant, revision of the acquired deformities of right and left reconstructed breast, and reconstruction of inframammary folds that had been effaced by the mastectomy and expansion process. She is aware of potential risks and complications of the surgery and has requested to perform the surgery. OPERATIVE PROCEDURE SUMMARY: The patient was seen in preoperative area, markings made, procedure reviewed, all questions answered. She was transported to the operating room where she was placed in the supine position. Following induction of general anesthesia, the patient was prepped and draped in usual fashion. The right and left breast incisions were oriented transverse from the nipple sparing procedure, reinked with a skin marker. Starting on the right side, incision was made following diagram drawn, dividing skin in full- thickness fashion with 10 blade scalpel, then used cauterization to divide subcutaneous tissue. Skin and subcutaneous tissue flaps were then elevated off the muscle flap layer by dissection with cautery. Extensive dissection was required to release through this contour irregularities caused by the other surgeries and healing. With this completed, a second incision was made through the muscle flap layer offset from the first inferior and oriented transverse exposing the prepress proofer, which was removed intact. The cavity appeared normal with no granulation tissue, no exudates. The cavity was irrigated. A complete capsulotomy incision was made where the capsule joined the chest wall. The areas of the capsule were thick and hypertrophic. Multiple cruciate incisions were then made through all surfaces of the capsule to release the tightness of the structure. The cavity was irrigated and packed open with saline- moistened laparotomy sponges. Attention was turned towards the left side. Following diagram placed, incision was made with 10 blade scalpel in a transverse fashion, dividing skin in full-thickness fashion, then cauterization was used to divide subcutaneous tissue layer and then elevate skin and subcutaneous tissue flaps off the underlying muscle flap graft layer. Extensive dissection was required as there were contour irregularities and adhesions from scarring. With this completed, a second incision was then made through the muscle flap graft layer offset from the first inferiorly and oriented transverse exposing the prepress proofer. Incision was made with cautery. The prepress proofer was removed intact. The expansion cavity appeared normal with no granulation tissue, no exudates with some serous fluid. Irrigation was performed. A complete capsulotomy incision was made, where the capsule joined the chest wall, and multiple cruciate incisions through the capsular structure to release this tightness. With this completed, the inframammary folds were now reconstructed at right and left side. Skin and subcutaneous tissue flaps were elevated through the inferior capsulotomy incision that was made previously elevating skin and subcutaneous tissue on the right side and left side using cautery for dissection. The right-sided fold was larger measuring 19 x 2 square cm and the left-sided fold flap measured 19 x 1. Once the flaps were created, we advanced in a cephalad fashion, secured to chest wall and periosteal rib tissue using interrupted 2- 0 Vicryl sutures in several discrete locations, creating a well-formed inframammary fold in the right and left side in near symmetrical location. Final irrigation was performed, hemostasis was optimal. Temporary breast implant sizer was opened on the field. Muscle sizers were tried, but ultimately 495 mL sizer appeared best for the right and left reconstructed breast with the incisions closed and the patient in seated up position. She has returned to supine position. Temporary mark anthony removed, sizer was removed. Gloves changed, and the implants were opened on the field. Both implants were from the [facility] soft touch breast implant line, model SSX-495, serial number for the right side was [id number], for the left side was [id number]. The implants were placed in the reconstructive cavities using the Canales funnel no-touch technique. They were irrigated with saline. The right side was placed first and the left side. The muscle flap graft layers were then closed over the implant using interrupted 3-0 Vicryl. The skin incisions were closed on each side approximating deep dermis using inverted interrupted 4-0 Monocryl and completing superficial dermal epidermal closure with running subcuticular 4-0 Prolene. Surgical quick cleansed with saline, dried, and covered with postoperative bandages using sterile 1 inch paper tape, Kerlix squares secured with 3M Medipore tape and then positioned size 2 white mammary support with additional gauze padding to the lateral aspects. The patient was awakened for anesthetic, extubated in the operating room and transferred to recovery room in good condition with stable vital signs. Estimated blood loss was 35 mL. There were no complications. MMCANDICE / MADHUN: [id number] / [id number]
== END 2022-03-22 13:15 | disposition home or self-care (01) ==
LOC: OR 06:58
PROVIDERS: ATTEND Plastic Surgery
DX: N65.0 Deformity of reconstructed breast (principal); Z85.3 Personal history of malignant neoplasm of breast; Z90.13 Acquired absence of bilateral breasts and nipples; F17.200 Nicotine dependence, unspecified, uncomplicated; Z88.2 Allergy status to sulfonamides; Z79.899 Other long term (current) drug therapy; Z79.810 Long term (current) use of selective estrogen receptor modulators (SERMs); Z91.09 Other allergy status, other than to drugs and biological substances; Z80.8 Family history of malignant neoplasm of other organs or systems
CPT/HCPCS: 85025; 19380; 11970; J2250; J0330; J1100; J2710; J2405; J3010; J2704; J1170; J2001

== ENCOUNTER → 2022-07-07 | Outpatient (CLI) | payer BC ==
--- NOTE | 2022-07-07 15:54 | USB ---
Reason for Exam: Follow-up at short interval from prior study. Risk Values: Kath 5 year model risk: 0.7%. NCI Lifetime model risk: 5.9%. Technique: Method: Whole Breast Handheld. Findings: The whole breast of the left breast, the axilla of the left breast and the retroareolar of the left breast were scanned. A complete US of all four quadrants of the breast, axilla, and retro-areolar region were reviewed. No solid or cystic masses are identified. Underlying breast reconstruction implant is noted. Overall Assessment: Benign, BI-RAD 2 Management: Diagnostic Breast Ultrasound of both breasts. If any further clinical indication in this patient status post bilateral mastectomy and breast reconstructions. Results were given to the patient verbally at the time of exam. Electronically signed and approved by: Annita Fonseca M.D. Radiologist
[2022-07-07 16:04] VITALS: BP 130/71; PULSE 66; RESP 12; TEMP 99
--- NOTE | 2022-07-07 16:34 | P.PN ---
Subjective Progress Note Date: 07/07/22 invasive lobular carcinoma left breast Ness is a 50 year old white female who is seen in consultation for Dr. Mccollum regarding a left breast invasive lobular carcinoma. The patient states she felt a lump in February. She had a bilateral mammogram in March and was told to have a repeat left breast mammogram in 6 months. This was repeated on 08-13-21 and a hyperdensity area of architectural distortion with spiculated margins was noted in the left axilla. An ultrasound was recommended an ultrasound was performed showing an irregular mass in the left axilla and ultrasound-guided core biopsy was performed on . Pathology revealed invasive lobular carcinoma ER/[place] positive HER-2/lorenzo negative. She does not note any other lumps masses or nodules of concern in either breast. The area has not changed since she first found it. It was not tender prior to her biopsy. She tolerated the biopsy without difficulty. She has never had any breast surgery. She is not complaining of any trauma or infection in the breast. She does not complain of any nipple discharge or skin changes. 12-17-21 The patient underwent a bilateral breast MRI on . This revealed marked background parenchymal enhancement. Known left breast malignancy was seen as an irregular mass at the 2 o'clock position measuring 2.1 cm. Surrounding the region was a non-mass enhancing area which measured 5 cm and was contiguous with the known malignancy and felt to be suspicious. No lymphadenopathy of concern was noted No evidence of malignancy in the right breast Multiple bilateral scattered simple cyst benign The patient was seen by Dr. Ch for immediate breast reconstruction consideration The patient underwent genetic testing and had a variant of uncertain significance 02-17-22 The patient on 12-28-21 underwent a bilateral nipple sparing mastectomy with a left sentinel node sampling. The margins were all negative, however the node had micromets. She was seen by radiation oncology and did not receive radiation therapy. She note 01-18-[address] Polanco radiation oncology/ Note 01-12-[address] Avila doubted need for chemotherapy; oncotype score 10 She is in the process of reconstruction. 07-07-22 The patient is status post bilateral mastectomy and reconstruction on 12-28-21. She had bilateral subpectoral reconstruction. She did not have any radiation, or chemotherapy. She is on tamoxifen. She is not worried about any lesions in her breast. She was recently diagnosed with basal cell carcinoma of her back, and the pre-melanoma on her right thigh. She is scheduled for excision of these areas. She had a ultrasound performed of both chest antonio and the left axilla which were all benign BIRADS 2. Caffeine: daily 3 cups coffee/ 3-4 cans of coca-cola nicotine: 1PPD/since 14 chocolate: none BCP: stopped at 30; used them for 12 years hormones: none Family History: maternal grandmother: lung cancer paternal grandfather: colon cancer paternal grandmother: cancer ? type sister: melanoma Hormonal History: menarche: 14 A1, age at first : 32; breast fed: no menopause: still having her periods; periods regular hormones: none BCP: stopped at 30 used for 12 years Surgical History: wisdom teeth bilateral mastectomy nipple sparing with left SNB bilateral breast implant reconstruction Medical History: anxiety and depression skin cancer Social history: Nicotine: One pack per day since 14 Alcohol: occasional; an actively drinking alcoholic, patient rarely drinks but did have something to drink after she found the diagnosis Drugs:none - Constitutional Comment: perimenopausal Constitutional: Reports sweats - EENT Eyes: denies blurred vision, denies pain Ears: deny: decreased hearing, tinnitus Ears, nose, mouth and throat: Denies headache, Denies sore throat - Breasts Breasts: bilateral: as per HPI - Cardiovascular Cardiovascular: Denies chest pain, Denies shortness of breath - Respiratory Respiratory: Denies cough - Gastrointestinal Gastrointestinal: Denies abdominal pain, Denies diarrhea, Denies nausea, Denies vomiting - Genitourinary (Female) Genitourinary: Denies dysuria, Denies hematuria - Menstruation Menstruation: Reports as per HPI, Reports period normal - Musculoskeletal Musculoskeletal: Denies myalgias - Integumentary Integumentary: Reports pruritus, Denies rash - Neurological Neurological: Denies numbness, Denies weakness - Psychiatric Psychiatric: Reports anxiety, Reports depression - Endocrine Endocrine: Reports fatigue - Hematologic/Lymphatic Comment: none - Allergic/Immunologic Allergic/Immunologic: Reports as per HPI Objective - Vital Signs Vital signs: Vital Signs Temp 99 F 07/07/22 15:56 Pulse 66 07/07/22 15:56 Resp 12 07/07/22 15:56 BP 130/71 07/07/22 15:56 Pulse Ox 97 07/07/22 15:56 FiO2 Intake & Output 07/06/22 07/07/22 07/07/22 18:59 06:59 18:59 Weight 56.699 kg Physical examination: Lungs: Clear Heart: Regular rate and rhythm Breast examination: Bra: 32D Inspection: Bilateral breast reconstruction Palpation: Right breast: No evidence of cancer on the chest wall, Right axilla: No adenopathy of concern Left chest wall: No evidence of cancer on the chest wall Left axilla: No adenopathy of concern Note Dr. Avila reviewed from [id number] Impression: Patient status post bilateral mastectomy with reconstruction and sentinel node biopsy on the left side No evidence of any recurrent cancer Plan: Continue tamoxifen Follow up here in 4 months Objective - Vital Signs Vital signs: Vital Signs Temp 99 F 07/07/22 15:56 Pulse 66 07/07/22 15:56 Resp 12 07/07/22 15:56 BP 130/71 07/07/22 15:56 Pulse Ox 97 07/07/22 15:56 FiO2 Intake & Output 07/06/22 07/07/22 07/07/22 18:59 06:59 18:59 Weight 56.699 kg
== END | disposition home or self-care (01) ==
LOC: RADUSWWP 14:55
PROVIDERS: ATTEND Surgery
DX: Z85.3 Personal history of malignant neoplasm of breast (principal); Z90.13 Acquired absence of bilateral breasts and nipples

== ENCOUNTER → 2022-11-11 | Outpatient (CLI) | payer BC ==
--- NOTE | 2022-11-11 10:42 | P.PN ---
Subjective Progress Note Date: 11/11/22 Principal diagnosis: invasive lobular cancer left breast 2021 invasive lobular carcinoma left breast, melanoma right leg, basal cell cancer back 09-10-21 Ness is a 50 year old white female who is seen in consultation for Dr. Mccollum regarding a left breast invasive lobular carcinoma. The patient states she felt a lump in February. She had a bilateral mammogram in March and was told to have a repeat left breast mammogram in 6 months. This was repeated on 08-13-21 and a hyperdensity area of architectural distortion with spiculated margins was noted in the left axilla. An ultrasound was recommended an ultrasound was performed showing an irregular mass in the left axilla and ultrasound-guided core biopsy was performed on . Pathology revealed invasive lobular carcinoma ER/[place] positive HER-2/lorenzo negative. She does not note any other lumps masses or nodules of concern in either breast. The area has not changed since she first found it. It was not tender prior to her biopsy. She tolerated the biopsy without difficulty. She has never had any breast surgery. She is not complaining of any trauma or infection in the breast. She does not complain of any nipple discharge or skin changes. 12-17-21 The patient underwent a bilateral breast MRI on . This revealed marked background parenchymal enhancement. Known left breast malignancy was seen as an irregular mass at the 2 o'clock position measuring 2.1 cm. Surrounding the region was a non-mass enhancing area which measured 5 cm and was contiguous with the known malignancy and felt to be suspicious. No lymphadenopathy of concern was noted No evidence of malignancy in the right breast Multiple bilateral scattered simple cyst benign The patient was seen by Dr. Ch for immediate breast reconstruction consideration The patient underwent genetic testing and had a variant of uncertain significance 02-17-22 The patient on 12-28-21 underwent a bilateral nipple sparing mastectomy with a left sentinel node sampling. The margins were all negative, however the node had micromets. She was seen by radiation oncology and did not receive radiation therapy. She note 01-18-[address] Polanco radiation oncology/ Note 01-12-[address] Avila doubted need for chemotherapy; oncotype score 10 She is in the process of reconstruction. 07-07-22 The patient is status post bilateral mastectomy and reconstruction on 12-28-21. She had bilateral subpectoral reconstruction. She did not have any radiation, or chemotherapy. She is on tamoxifen. She is not worried about any lesions in her breast. She was recently diagnosed with basal cell carcinoma of her back, and the pre-melanoma on her right thigh. She is scheduled for excision of these areas. She had a ultrasound performed of both chest antonio and the left axilla which were all benign BIRADS 2. 4-7-23 The patient is status post bilateral nipple sparing mastectomies with reconstruction for invasive lobular left breast cancer on 12-28-21. T1N(micromets)M0ER+Pr+Her2-G2. 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 And ALH in the right breast without cancer. She is continuing on tamoxifen. She did not have radiation therapy, or chemotherapy. Does not feel any lumps masses or nodules of concern on either chest wall. She has been treated for melanoma of her right leg, and basal cell cancer on her back July 2022, and August 2022 she follows with dermatology Caffeine: daily 3 cups coffee/ 3-4 cans of coca-cola nicotine: 1PPD/since chocolate: none BCP: stopped at 30; used them for 12 years hormones: none Family History: maternal grandmother: lung cancer paternal grandfather: colon cancer paternal grandmother: cancer ? type sister: melanoma Hormonal History: menarche: 14 A1, age at first : 32; breast fed: no menopause: still having her periods; periods regular hormones: none BCP: stopped at 30 used for 12 years Surgical History: wisdom teeth bilateral mastectomy nipple sparing with left SNB bilateral breast implant reconstruction Medical History: anxiety and depression skin cancer Social history: Nicotine: One pack per day since Alcohol: occasional; an actively drinking alcoholic, patient rarely drinks but did have something to drink after she found the diagnosis Drugs:none - Constitutional Comment: perimenopausal Constitutional: Reports sweats - EENT Eyes: denies blurred vision, denies pain Ears: deny: decreased hearing, tinnitus Ears, nose, mouth and throat: Denies headache, Denies sore throat - Breasts Breasts: bilateral: as per HPI - Cardiovascular Cardiovascular: Denies chest pain, Denies shortness of breath - Respiratory Respiratory: Denies cough - Gastrointestinal Gastrointestinal: Denies abdominal pain, Denies diarrhea, Denies nausea, Denies vomiting - Genitourinary (Female) Genitourinary: Denies dysuria, Denies hematuria - Menstruation Menstruation: Reports as per HPI, Reports period normal - Musculoskeletal Musculoskeletal: Denies myalgias - Integumentary Integumentary: Reports pruritus, Denies rash - Neurological Neurological: Denies numbness, Denies weakness - Psychiatric Psychiatric: Reports anxiety, Reports depression - Endocrine Endocrine: Reports fatigue - Hematologic/Lymphatic Comment: none - Allergic/Immunologic Allergic/Immunologic: Reports as per HPI Objective - Constitutional General appearance: Present: cooperative - EENT Eyes: Present: EOMI - Neck Neck: Present: normal ROM - Respiratory Respiratory: bilateral: CTA - Cardiovascular Rhythm: regular Heart sounds: normal: S1, S2 - Gastrointestinal General gastrointestinal: Present: soft - Integumentary Integumentary: Present: normal turgor - Musculoskeletal Musculoskeletal: Present: gait normal - Psychiatric Psychiatric: Present: A&O x's 3, appropriate affect, intact judgment & insight - Additional findings Additional findings: Breast examination: Bra: 32D Inspection: Bilateral breast reconstruction Palpation: Right breast: No evidence of cancer on the chest wall, Right axilla: shoddy adenopathy Left chest wall: No evidence of cancer on the chest wall Left axilla: No adenopathy of concern Assessment and Plan Assessment: Impression: No evidence of recurrent left breast invasive lobular carcinoma Shotty adenopathy right axilla Patient presently on tamoxifen Patient status post bilateral breast reconstruction with subpectoral implants Plan: Right axillary ultrasound to evaluate lymph nodes Follow up after ultrasound Continue tamoxifen Continue to follow with Dr. Avila follow with dermatology CC: Dr. Avila
[2022-11-11 10:46] VITALS: BP 128/79; PULSE 64; RESP 17; TEMP 97.9
== END ==
LOC: WWCWWP 09:36
PROVIDERS: ATTEND Surgery
DX: D05.02 Lobular carcinoma in situ of left breast (principal); C43.71 Malignant melanoma of right lower limb, including hip; Z42.1 Encounter for breast reconstruction following mastectomy; Z88.2 Allergy status to sulfonamides; Z91.040 Latex allergy status

== ENCOUNTER → 2022-12-29 | Outpatient (CLI) | payer BC ==
--- NOTE | 2022-12-29 15:32 | USB ---
Reason for Exam: Clinical finding. Risk Values: Kath 5 year model risk: 0.7%. NCI Lifetime model risk: 5.8%. Technique: Method: Targeted. Findings: The axilla of the right breast was scanned. Targeted ultrasound right axilla for the region of physician palpated abnormality. Patient status post bilateral mastectomy after left breast cancer. At the palpable site, there is a borderline enlarged axillary lymph node measuring 2.8 x 1.5 x 0.8 cm. There is uniform cortical thickness up to 2 mm. Preserved fatty hilum. Suspected reactive/post inflammatory node. 3 month follow-up to reassess. Overall Assessment: Probably benign, BI-RAD 3 Management: Diagnostic Breast Ultrasound of the right breast in 3 months. For the borderline enlarged right axillary node, likely reactive etiology. Continue monthly self exams. Results were given to the patient verbally at the time of exam. Electronically signed and approved by: Annita Fonseca M.D. Radiologist
== END | disposition home or self-care (01) ==
LOC: RADUSWWP 14:43
PROVIDERS: ATTEND Surgery
DX: N63.31 Unspecified lump in axillary tail of the right breast (principal); R59.0 Localized enlarged lymph nodes; Z85.3 Personal history of malignant neoplasm of breast; Z90.13 Acquired absence of bilateral breasts and nipples

== ENCOUNTER → 2023-01-05 | Outpatient (CLI) | payer BC ==
[2023-01-05 16:16] VITALS: BP 123/83; PULSE 74; RESP 18; TEMP 98.5
--- NOTE | 2023-01-05 16:29 | P.PN ---
Subjective Progress Note Date: 01/05/23 Principal diagnosis: Left breast invasive lobular carcinoma 2021, melanoma right leg, basal cell cancer back invasive lobular carcinoma left breast 2021, melanoma right leg, basal cell cancer back 01-05-23 The patient is status post bilateral nipple sparing mastectomies with reconstruction for invasive lobular left breast cancer on 12-28-21. T1N(micromets)M0ER+Pr+Her2-G2. 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 And ALH in the right breast without cancer. She is continuing on tamoxifen. She did not have radiation therapy, or chemotherapy. Does not feel any lumps masses or nodules of concern on either chest wall. She has been treated for melanoma of her right leg, and basal cell cancer on her back July 2022, and August 2022 she follows with dermatology The patient on examination of [id number] was noted to have shotty right axillary a denopathy. An ultrasound was recommended and this was done and [id number]. This revealed a 2.8 x 1.5 cm lymph node felt to be most likely inflammatory and repeat ultrasound of the node was recommended in 3 months. Caffeine: daily 3 cups coffee/ 3-4 cans of coca-cola nicotine: 1PPD/since chocolate: none BCP: stopped at 30; used them for 12 years hormones: none Family History: maternal grandmother: lung cancer paternal grandfather: colon cancer paternal grandmother: cancer ? type sister: melanoma Hormonal History: menarche: 14 A1, age at first : 32; breast fed: no menopause: still having her periods; periods regular hormones: none BCP: stopped at 30 used for 12 years Surgical History: wisdom teeth bilateral mastectomy nipple sparing with left SNB bilateral breast implant reconstruction Medical History: anxiety and depression skin cancer Social history: Nicotine: One pack per day since Alcohol: occasional; an actively drinking alcoholic, patient rarely drinks but did have something to drink after she found the diagnosis Drugs:none - Constitutional Comment: perimenopausal Constitutional: Reports sweats - EENT Eyes: denies blurred vision, denies pain Ears: deny: decreased hearing, tinnitus Ears, nose, mouth and throat: Denies headache, Denies sore throat - Breasts Breasts: bilateral: as per HPI - Cardiovascular Cardiovascular: Denies chest pain, Denies shortness of breath - Respiratory Respiratory: Denies cough - Gastrointestinal Gastrointestinal: Denies abdominal pain, Denies diarrhea, Denies nausea, Denies vomiting - Genitourinary (Female) Genitourinary: Denies dysuria, Denies hematuria - Menstruation Menstruation: Reports as per HPI, Reports period normal - Musculoskeletal Musculoskeletal: Denies myalgias - Integumentary Integumentary: Reports pruritus, Denies rash - Neurological Neurological: Denies numbness, Denies weakness - Psychiatric Psychiatric: Reports anxiety, Reports depression - Endocrine Endocrine: Reports fatigue - Hematologic/Lymphatic Comment: none - Allergic/Immunologic Allergic/Immunologic: Reports as per HPI Objective - Constitutional General appearance: Present: cooperative - EENT Eyes: Present: EOMI ENT: Present: hearing grossly normal - Neck Neck: Present: normal ROM - Respiratory Respiratory: bilateral: CTA - Cardiovascular Heart sounds: normal: S1, S2 - Gastrointestinal General gastrointestinal: Present: soft - Integumentary Integumentary: Present: normal turgor - Musculoskeletal Musculoskeletal: Present: gait normal - Psychiatric Psychiatric: Present: A&O x's 3, appropriate affect, intact judgment & insight - Additional findings Additional findings: Breast examination: Bra: 32D Inspection: Bilateral breast reconstruction Palpation: Right breast: No evidence of cancer on the chest wall, Right axilla: shoddy adenopathy persisted right axilla appears stable ultrasound done on 12-29-22 probably inflammatory repeat in 3 months Left chest wall: No evidence of cancer on the chest wall Left axilla: No adenopathy of concern Assessment and Plan Assessment: Impression: No evidence of recurrent left breast invasive lobular carcinoma 2021 Shotty adenopathy right axilla Patient presently on tamoxifen Patient status post bilateral breast reconstruction with subpectoral implants Plan: Right axillary ultrasound to evaluate lymph nodes, performed on . This revealed an enlarged axillary node measuring 2.8 x 1.5 x 0.8 cm. This was felt to be most likely inflammatory in diagnostic right breast ultrasound and examination of the axilla in 3 months was recommended. Patient will follow up at that time Follow up after ultrasound Continue tamoxifen Continue to follow with Dr. Avila follow with dermatology CC: Dr. Avila
== END ==
LOC: WWCWWP 16:05
PROVIDERS: ATTEND Surgery
DX: Z80.0 Family history of malignant neoplasm of digestive organs (principal); Z80.1 Family history of malignant neoplasm of trachea, bronchus and lung; F32.A Depression, unspecified; F41.9 Anxiety disorder, unspecified; F17.210 Nicotine dependence, cigarettes, uncomplicated; Z85.3 Personal history of malignant neoplasm of breast; Z85.828 Personal history of other malignant neoplasm of skin; Z90.13 Acquired absence of bilateral breasts and nipples; Z88.2 Allergy status to sulfonamides; Z91.048 Other nonmedicinal substance allergy status

== ENCOUNTER → 2023-04-03 | Outpatient (CLI) | payer BC ==
--- NOTE | 2023-04-19 10:28 | USB ---
Reason for Exam: Follow-up at short interval from prior study. Risk Values: Kath 5 year model risk: 0.7%. NCI Lifetime model risk: 5.8%. Findings: Imaged: Ultrasound imaging of: Area of concern in the right axilla. Stable right axilla lymph node. Cortex remains within limits for thickness measuring up to 2 mm. No evidence for organizing fluid collection or mass. Overall Assessment: Benign, BI-RAD 2 Management: No follow up is required for this exam. A clinical breast exam by your physician is recommended on an annual basis and results should be correlated with mammographic findings. This exam should not preclude additional follow-up of suspicious palpable abnormalities. Results were given to the patient verbally at the time of exam. Electronically signed and approved by: Jeffery Curry DO
== END | disposition home or self-care (01) ==
LOC: RADUSWWP 14:16
PROVIDERS: ATTEND Surgery
DX: Z53.9 Procedure and treatment not carried out, unspecified reason (principal)

== ENCOUNTER → 2023-07-28 | Outpatient (CLI) | payer BC ==
--- NOTE | 2023-07-28 14:45 | USB ---
Reason for Exam: Follow-up at short interval from prior study. Risk Values: Kath 5 year model risk: 0.7%. NCI Lifetime model risk: 5.8%. Technique: Method: Targeted. Findings: The axilla of the right breast was scanned. Targeted ultrasound of the right axilla in order to reassess the previously visualized lymph node. Prominent lymph node is redemonstrated measuring 3.1 x 1.4 x 0.9 cm. This is in comparison to: 2.9 x 1.0 x 0.8 cm on 04/03/2023 and 2.8 x 1.5 x 0.8 cm on 12/29/2022. Overall unchanged. Similar uniformly thin cortex at 2 mm. Undergoing follow-up can be performed given patient's history and prominent size. Overall Assessment: Probably benign, BI-RAD 3 Management: Diagnostic Breast Ultrasound of the right breast in 6 months. To reassess the borderline sized but favored benign lymph node in the right axilla, relatively stable for the last 6 months. A clinical breast exam by your physician is recommended on an annual basis and results should be correlated with mammographic findings. This exam should not preclude additional follow-up of suspicious palpable abnormalities. Results were given to the patient verbally at the time of exam. Electronically signed and approved by: Annita Fonseca M.D. Radiologist
--- NOTE | 2023-07-28 15:05 | P.PN ---
Subjective Progress Note Date: 07/28/23 Left breast invasive lobular carcinoma 2021, melanoma right leg, basal cell cancer back invasive lobular carcinoma left breast 2021, melanoma right leg, basal cell cancer back 01-05-23 The patient is status post bilateral nipple sparing mastectomies with reconstruction for invasive lobular left breast cancer on 12-28-21. T1N(micromets)M0ER+Pr+Her2-G2. 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 And ALH in the right breast without cancer. She is continuing on tamoxifen. She did not have radiation therapy, or chemotherapy. Does not feel any lumps masses or nodules of concern on either chest wall. She has been treated for melanoma of her right leg, and basal cell cancer on her back July 2022, and August 2022 she follows with dermatology The patient on examination of 4723 was noted to have shotty right axillary adenopathy. [place] [id number]. This revealed a 2.8 x 1.5 cm lymph node felt to be most likely inflammatory and repeat ultrasound of the node was recommended in 3 months. 04-13-23 The patient is not complaining of any new lumps masses or nodules of concern in either breast. She continues to have some shotty right axillary adenopathy which is non-worrisome for her. The patient complaining of uterine bleeding and followed with gynecology, she is following with them. 07-28-23 Ultrasound of right axilla to [id number] probably benign BIRADS 3 stable. Lymph node which is benign in appearance She is not complaining of any new lumps masses or nodules of concern in either chest wall under either arm Note Dr. Avila reviewed [id number] Caffeine: daily 3 cups coffee/ 3-4 cans of coca-cola nicotine: 1PPD/since chocolate: none BCP: stopped at 30; used them for 12 years hormones: none Family History: maternal grandmother: lung cancer paternal grandfather: colon cancer paternal grandmother: cancer ? type sister: melanoma Hormonal History: menarche: 14 A1, age at first : 32; breast fed: no menopause: still having her periods; periods regular hormones: none BCP: stopped at 30 used for 12 years Surgical History: wisdom teeth bilateral mastectomy nipple sparing with left SNB bilateral breast implant reconstruction Medical History: anxiety and depression skin cancer Social history: Nicotine: One pack per day since 14 Alcohol: occasional; an actively drinking alcoholic, patient rarely drinks but did have something to drink after she found the diagnosis Drugs:none - Constitutional Comment: perimenopausal Constitutional: Reports sweats - EENT Eyes: denies blurred vision, denies pain Ears: deny: decreased hearing, tinnitus Ears, nose, mouth and throat: Denies headache, Denies sore throat - Breasts Breasts: bilateral: as per HPI - Cardiovascular Cardiovascular: Denies chest pain, Denies shortness of breath - Respiratory Respiratory: Denies cough - Gastrointestinal Gastrointestinal: Denies abdominal pain, Denies diarrhea, Denies nausea, Denies vomiting - Genitourinary (Female) Genitourinary: Denies dysuria, Denies hematuria - Menstruation Menstruation: Reports as per HPI, Reports period normal - Musculoskeletal Musculoskeletal: Denies myalgias - Integumentary Integumentary: Reports pruritus, Denies rash - Neurological Neurological: Denies numbness, Denies weakness - Psychiatric Psychiatric: Reports anxiety, Reports depression - Endocrine Endocrine: Reports fatigue - Hematologic/Lymphatic Comment: none - Allergic/Immunologic Allergic/Immunologic: Reports as per HPI Objective - Constitutional General appearance: Present: cooperative - EENT Eyes: Present: EOMI ENT: Present: hearing grossly normal - Neck Neck: Present: normal ROM - Respiratory Respiratory: bilateral: CTA - Cardiovascular Rhythm: regular Heart sounds: normal: S1, S2 - Integumentary Integumentary: Present: normal turgor - Musculoskeletal Musculoskeletal: Present: gait normal - Psychiatric Psychiatric: Present: A&O x's 3, appropriate affect, intact judgment & insight - Additional findings Additional findings: Breast examination: Bra: 32D Inspection: Bilateral breast reconstruction Palpation: Right breast: No evidence of cancer on the chest wall, Right axilla: shoddy adenopathy persisted right axilla appears stable ultrasound done on 07-28-23 probably inflammatory repeat in 6 months; Left chest wall: No evidence of cancer on the chest wall Left axilla: No adenopathy of concern Assessment and Plan Assessment: Impression: No evidence of recurrent left breast invasive lobular carcinoma 2021 Shoddy adenopathy right axilla Patient presently on tamoxifen Patient status post bilateral breast reconstruction with subpectoral implants Ultrasound of the right axilla [id number] stable adenopathy Plan: Right axillary ultrasound to evaluate lymph nodes, performed on 07-28-23. This revealed an enlarged axillary node measuring 3.1 by 1.4 cm. This was felt to be most likely inflammatory in diagnostic Continue tamoxifen Continue to follow with Dr. Avila will discuss tamoxifen with DR. Avila follow with dermatology repeat right axillary ultrasound in 6 months with appointment follow up with gynecology in October, she told it is OK to continue tamoxifen CC: Dr. Avila
== END ==
LOC: WWCWWP 14:15
PROVIDERS: ATTEND Surgery
DX: C50.912 Malignant neoplasm of unspecified site of left female breast (principal); C43.71 Malignant melanoma of right lower limb, including hip; N60.91 Unspecified benign mammary dysplasia of right breast; R59.0 Localized enlarged lymph nodes; Z85.820 Personal history of malignant melanoma of skin; Z90.13 Acquired absence of bilateral breasts and nipples; Z79.810 Long term (current) use of selective estrogen receptor modulators (SERMs); Z88.2 Allergy status to sulfonamides; Z91.09 Other allergy status, other than to drugs and biological substances

== ENCOUNTER → 2023-07-28 | Outpatient (CLI) | payer BC | END | disposition home or self-care (01) | LOC: RADUSWWP 14:13 | PROVIDERS: ATTEND Surgery | DX: Z53.9 Procedure and treatment not carried out, unspecified reason (principal) ==

== ENCOUNTER → 2024-01-29 | Outpatient (CLI) | payer BC ==
--- NOTE | 2024-01-31 07:51 | USB ---
Reason for Exam: Follow-up at short interval from prior study. Risk Values: Kath 5 year model risk: 0.7%. NCI Lifetime model risk: 5.7%. Technique: Method: Targeted. Findings: The axilla of the right breast was scanned. Evaluation of the right axilla demonstrates prominent longitudinal lymph node at 3 cm however short axis measurement is 9 mm which is not considered enlarged. The cortex does not appear to the thickened at T2 3 cm. Overall stable appearance of the right axillary lymph node is felt to be within normal limits. Overall Assessment: Benign, BI-RAD 2 Management: Screening Mammogram of both breasts in 6 months. A clinical breast exam by your physician is recommended on an annual basis and results should be correlated with mammographic findings. This exam should not preclude additional follow-up of suspicious palpable abnormalities. Results were given to the patient verbally at the time of exam. Electronically signed and approved by: Randy Sherman M.D. Radiologis
== END | disposition home or self-care (01) ==
LOC: RADUSWWP 14:59
PROVIDERS: ATTEND Surgery
DX: N63.10 Unspecified lump in the right breast, unspecified quadrant (principal)

== ENCOUNTER → 2024-02-02 | Outpatient (CLI) | payer BC ==
[2024-02-02 09:49] VITALS: BP 124/82; PULSE 75; RESP 16; TEMP 98.1
--- NOTE | 2024-02-02 09:59 | P.PN ---
Subjective Progress Note Date: 02/02/24 Principal diagnosis: Invasive lobular carcinoma left breast 2021, melanoma right leg, basal cell cancer back 02-02-24 The patient is status post bilateral nipple sparing mastectomies with reconstruction for invasive lobular left breast cancer on 12-28-21. T1N(micromets)M0ER+Pr+Her2-G2. 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 And ALH in the right breast without cancer. She is continuing on tamoxifen. She did not have radiation therapy, or chemotherapy. Does not feel any lumps masses or nodules of concern on either chest wall. She has been treated for melanoma of her right leg, and basal cell cancer on her back July 2022, and August 2022 she follows with dermatology The patient on examination of 4722 was noted to have shotty right axillary adenopathy. An ultrasound was [place] [id number]. This revealed a 2.8 x 1.5 cm lymph node felt to be most likely inflammatory and repeat ultrasound of the node was recommended in 3 months. Repeat ultrasound of the right axilla was performed on 01-29-2024 the lymph node in question was felt to be stable the cortex was not felt to be enlarged and the feeling was this was benign BI-RADS 2. She is not complaining of any new lumps masses or nodules of concern in either chest wall Caffeine: daily 3 cups coffee/ 3-4 cans of coca-cola nicotine: 1PPD/since chocolate: none BCP: stopped at 30; used them for 12 years hormones: none Family History: maternal grandmother: lung cancer paternal grandfather: colon cancer paternal grandmother: cancer ? type sister: melanoma Hormonal History: menarche: 14 A1, age at first : 32; breast fed: no menopause: still having her periods; periods regular hormones: none BCP: stopped at 30 used for 12 years Surgical History: wisdom teeth bilateral mastectomy nipple sparing with left SNB bilateral breast implant reconstruction Medical History: anxiety and depression skin cancer Social history: Nicotine: One pack per day since Alcohol: occasional; an actively drinking alcoholic, patient rarely drinks but did have something to drink after she found the diagnosis Drugs:none - Constitutional Comment: perimenopausal Constitutional: Reports sweats - EENT Eyes: denies blurred vision, denies pain Ears: deny: decreased hearing, tinnitus Ears, nose, mouth and throat: Denies headache, Denies sore throat - Breasts Breasts: bilateral: as per HPI - Cardiovascular Cardiovascular: Denies chest pain, Denies shortness of breath - Respiratory Respiratory: Denies cough - Gastrointestinal Gastrointestinal: Denies abdominal pain, Denies diarrhea, Denies nausea, Denies vomiting - Genitourinary (Female) Genitourinary: Denies dysuria, Denies hematuria - Menstruation Menstruation: Reports as per HPI, Reports period normal - Musculoskeletal Musculoskeletal: Denies myalgias - Integumentary Integumentary: Reports pruritus, Denies rash - Neurological Neurological: Denies numbness, Denies weakness - Psychiatric Psychiatric: Reports anxiety, Reports depression - Endocrine Endocrine: Reports fatigue - Hematologic/Lymphatic Comment: none - Allergic/Immunologic Allergic/Immunologic: Reports as per HPI Objective - Constitutional General appearance: Present: cooperative - EENT Eyes: Present: EOMI ENT: Present: hearing grossly normal - Neck Neck: Present: normal ROM - Respiratory Respiratory: bilateral: CTA - Cardiovascular Rhythm: regular Heart sounds: normal: S1, S2 - Gastrointestinal General gastrointestinal: Present: soft - Integumentary Integumentary: Present: normal turgor - Musculoskeletal Musculoskeletal: Present: gait normal - Psychiatric Psychiatric: Present: A&O x's 3, appropriate affect, intact judgment & insight - Additional findings Additional findings: Breast examination: Bra: 32D Inspection: Bilateral breast reconstruction Palpation: Right breast: No evidence of cancer on the chest wall, Right axilla: shoddy adenopathy persisted right axilla appears stable ultrasound done on 07-28-23 probably inflammatory repeat in 6 months; repeat ultrasound of right axilla 01-29-24 BIRAD 2 Left chest wall: No evidence of cancer on the chest wall Left axilla: No adenopathy of concern Assessment and Plan Assessment: Impression: No evidence of recurrent left breast invasive lobular carcinoma 2021 Shoddy adenopathy right axilla/ stable radiographically Patient presently on tamoxifen Patient status post bilateral breast reconstruction with subpectoral implants Ultrasound of the right axilla 01-29-24 stable adenopathy Plan: Continue tamoxifen Continue to follow with Dr. Avila will discuss tamoxifen with DR. Avila follow with dermatology Follow-up appointment here in 6 months Follow-up sooner any questions or concerns CC: Dr. Avila
== END ==
LOC: WWCWWP 09:38
PROVIDERS: ATTEND Surgery
DX: C43.71 Malignant melanoma of right lower limb, including hip (principal); C50.912 Malignant neoplasm of unspecified site of left female breast; N60.91 Unspecified benign mammary dysplasia of right breast; R59.0 Localized enlarged lymph nodes; F17.210 Nicotine dependence, cigarettes, uncomplicated; Z17.0 Estrogen receptor positive status [ER+]; Z85.820 Personal history of malignant melanoma of skin; Z88.2 Allergy status to sulfonamides; Z88.8 Allergy status to other drugs, medicaments and biological substances; Z85.828 Personal history of other malignant neoplasm of skin

== ENCOUNTER → 2025-01-17 | Outpatient (CLI) | payer BC ==
[2025-01-17 10:33] VITALS: BP 126/76; PULSE 75; RESP 16; TEMP 96.9
--- NOTE | 2025-01-17 10:34 | P.PN ---
Subjective Progress Note Date: 01/17/25 Principal diagnosis: left breast 2021 invasive lobular cancer [id number]+Pr+Her2- Ultrasound right axilla performed on 01-29-2024 personally reviewed and interpreted. Original Note: Subjective Progress Note Date: 02/02/24 Principal diagnosis: Invasive lobular carcinoma left breast 2021, melanoma right leg, basal cell cancer back 02-02-24 The patient is status post bilateral nipple sparing mastectomies with reconstruction for invasive lobular left breast cancer on 12-28-21. T1N(micromets)M0ER+Pr+Her2-G2. 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 And ALH in the right breast without cancer. She is continuing on tamoxifen. She did not have radiation therapy, or chemotherapy. Does not feel any lumps masses or nodules of concern on either chest wall. She has been treated for melanoma of her right leg, and basal cell cancer on her back July 2022, and August 2022 she follows with dermatology The patient on examination of 4722 was noted to have shotty right axillary ad enopathy. An ultrasound was recommended and this was done and . This revealed a 2.8 x 1.5 cm lymph node felt to be most likely inflammatory and repeat ultrasound of the node was recommended in 3 months. Repeat ultrasound of the right axilla was performed on 01-29-2024 the lymph node in question was felt to be stable the cortex was not felt to be enlarged and the feeling was this was benign BI-RADS 2. She is not complaining of any new lumps masses or nodules of concern in either chest wall 01-17-25 Ness is status post bilateral nipple sparing mastectomies with reconstruction for invasive lobular carcinoma of the left breast on 12-28-2021. This was a T1N micro mets M0 ER positive MN positive HER2 negative G2 lesion. She had extensive LCIS in the left breast, and atypical lobular hyperplasia in the right breast without cancer. She was placed on tamoxifen. She did not have radiation therapy or chemotherapy. She has been treated for melanoma of her right leg and basal cell cancer on her back in July 2022 and August 2022. She follows with dermatology. Her examination in the past did reveal some shotty right axillary adenopathy and an ultrasound was done which was felt to be stable with no enlargement of the cortex. She continues on tamoxifen and is tolerating this without difficulty She has no complaints or concerns at this time related to either chest wall or t o either axilla. Caffeine: daily 3 cups coffee/ 3-4 cans of coca-cola nicotine: 1PPD/since 14 chocolate: none BCP: stopped at 30; used them for 12 years hormones: none Family History: maternal grandmother: lung cancer paternal grandfather: colon cancer paternal grandmother: cancer ? type sister: melanoma Hormonal History: menarche: 14 A1, age at first : 32; breast fed: no menopause: still having her periods; periods regular hormones: none BCP: stopped at 30 used for 12 years Surgical History: wisdom teeth bilateral mastectomy nipple sparing with left SNB bilateral breast implant reconstruction Medical History: anxiety and depression skin cancer Social history: Nicotine: One pack per day since 14 Alcohol: occasional; an actively drinking alcoholic, patient rarely drinks but did have something to drink after she found the diagnosis Drugs:none - Constitutional Comment: perimenopausal Constitutional: Reports sweats - EENT Eyes: denies blurred vision, denies pain Ears: deny: decreased hearing, tinnitus Ears, nose, mouth and throat: Denies headache, Denies sore throat - Breasts Breasts: bilateral: as per HPI - Cardiovascular Cardiovascular: Denies chest pain, Denies shortness of breath - Respiratory Respiratory: Denies cough - Gastrointestinal Gastrointestinal: Denies abdominal pain, Denies diarrhea, Denies nausea, Denies vomiting - Genitourinary (Female) Genitourinary: Denies dysuria, Denies hematuria - Menstruation Menstruation: Reports as per HPI, Reports period normal - Musculoskeletal Musculoskeletal: Denies myalgias - Integumentary Integumentary: Reports pruritus, Denies rash - Neurological Neurological: Denies numbness, Denies weakness - Psychiatric Psychiatric: Reports anxiety, Reports depression - Endocrine Endocrine: Reports fatigue - Hematologic/Lymphatic Comment: none - Allergic/Immunologic Allergic/Immunologic: Reports as per HPI Objective - Constitutional General appearance: Present: cooperative - EENT Eyes: Present: EOMI ENT: Present: hearing grossly normal - Neck Neck: Present: normal ROM - Respiratory Respiratory: bilateral: CTA - Cardiovascular Rhythm: regular Heart sounds: normal: S1, S2 - Integumentary Integumentary: Present: normal turgor - Musculoskeletal Musculoskeletal: Present: gait normal - Psychiatric Psychiatric: Present: A&O x's 3, appropriate affect, intact judgment & insight - Additional findings Additional findings: Breast examination: Bra: 32D Inspection: Bilateral breast reconstruction Palpation: Right breast: No evidence of cancer on the chest wall, Right axilla: shoddy adenopathy non worrisome Left chest wall: No evidence of cancer on the chest wall Left axilla: No adenopathy of concern Assessment and Plan Assessment: Impression: No evidence of recurrent left breast invasive lobular carcinoma 2021 Shoddy adenopathy right axilla/ stable radiographically Patient presently on tamoxifen Patient status post bilateral breast reconstruction with subpectoral implants Ultrasound of the right axilla 01-29-24 stable adenopathy Plan: Continue tamoxifen Continue to follow with Dr. Avila follow with dermatology Follow-up appointment here in 6 months Follow-up sooner any questions or concerns CC: Dr. Avila
== END ==
LOC: WWCWWP 10:12
PROVIDERS: ATTEND Surgery
DX: R59.0 Localized enlarged lymph nodes (principal); Z91.048 Other nonmedicinal substance allergy status; Z88.2 Allergy status to sulfonamides